=== PATIENT | female | born 1965 | race Hispanic/Latino ===

== ENCOUNTER 2019-07-29 13:36 | Outpatient (CLI) | payer OTHER ==
--- NOTE | 2019-07-29 14:20 | XRay Report ---
CHEST 2 VIEWS INDICATION: URI. COMPARISON: None. FINDINGS: Support devices: None. Heart: Within normal limits. Pulmonary vasculature: Normal. Lungs/pleura: No acute air space or interstitial disease. No pneumothorax. Additional findings: None. IMPRESSION: 1. No acute findings. Signer Name: Huan Denise MD Signed: 07/29/2019 2:16 PM Workstation Name: [id number]
== END 2019-07-29 13:37 | disposition home or self-care (01) ==
LOC: SPVIMAG 13:36
PROVIDERS: ATTEND Internal Medicine
DX: J06.9 Acute upper respiratory infection, unspecified (principal)
CPT/HCPCS: 71046